=== PATIENT | female | born 2000 | race Two or more races ===

== ENCOUNTER 2024-11-28 10:07 | Observation (INO) | payer MEDICAID, SELFPAY ==
[2024-11-28 10:15] VITALS: BP 131/69; PULSE 93; RESP 18; RESP 97; TEMP 36.7
--- NOTE | 2024-11-28 10:19 | XR_ITS ---
Examination: Complete OB ultrasound greater than 14 weeks Date and time of exam: November 20, 2024 1140 hrs. Indications: Vaginal bleeding beginning 3 days ago Findings: Viable intrauterine single fetus with single amniotic sac presentation cephalic spine maternal left Cardiac motion 136 BPM Placenta anterior grade 3 Umbilical cord insertion seen Amniotic fluid index 10.3 cm Cervix 3.9 cm closed Ovaries obscured by bowel gas. Composite estimated gestational age based on BPD, head circumference, abdominal circumference, femur length is 38 weeks 1 day Estimated weight 3228 g. Survey of intracranial anatomy, spinal anatomy, abdominal anatomy, four-chamber heart performed with no abnormalities identified. Impression: Viable intrauterine gestation cephalic presentation.
[2024-11-28 10:23] VITALS: BMI 28.0
[2024-11-28 11:04] LABS: ROM Kit Lot # 57809118; ROM Swab Mixed By: YOUNB; Rupture of Fetal Membranes Negative (Negative); Swb Mxed in Solvent 1 min? Yes
--- NOTE | 2024-11-28 13:51 | PC.NURSE ---
Patient discharged home with self. Vitals WNL. Amnisure negative. Patient given discharge education including reasons to return and precautions. Patient instructed to follow up with OB provider at next scheduled appt on 12/01. Patient verbalizes understanding, all questions answered and encouraged.
== END 2024-11-28 13:43 | disposition home or self-care (01) ==
PROVIDERS: Admitting Provider Specialist; Visit Provider Specialist
DX: Z34.83 Encounter for supervision of other normal pregnancy, third trimester (principal); Z3A.39 39 weeks gestation of pregnancy
CPT/HCPCS: 59025; 59899; 76805; 84112

== ENCOUNTER 2024-12-01 19:05 | Inpatient (IN) | payer MEDICAID, SELFPAY ==
[2024-12-01] VITALS (41 sets, daily range): BP systolic 0–140; BP diastolic 0–88; PULSE 65–102; RESP 15–100; TEMP 36.6–36.8; O2SAT 94–100; BMI 27.6
--- NOTE | 2024-12-01 19:53 | PD.LDHP ---
Documentation for date of: 12/01/24 OB Labor/Induct. HPI History of Present Illness History of present illness: H and P dictated on STAT line #9 in [place] [id number] Meds Home Medications and Allergies Home Medications ?Medication ?Instructions ?Recorded ?Confirmed ?Type vitamins-iron fumarate 27 1 tab PO QDAY 01/20/20 12/01/24 History mg iron-folic acid 0.8 mg tablet ( Vitamin) Allergies Allergy/AdvReac Type Severity Reaction Status Date / Time No Known Allergies Allergy Verified 12/01/24 19:23 OB Exam Physical Exam Vital signs: Temp Pulse Resp BP 97.9 F 88 15 140/88 H 12/01/24 19:30 12/01/24 19:24 12/01/24 19:24 12/01/24 19:24
[2024-12-01] MEDS: fentaNYL CIT INJ 50 mCg/ML AMP 2ML 100 MCG IV (21:04)
[2024-12-01 21:55] LABS: Basophils % (Auto) 0 % (0-2.5); Eosinophils % (Auto) 0 % (0-10); Hematocrit 37.2 % (36.0-46.0); Hemoglobin 12.6 g/dL (12.0-16.0); Immature Granulocytes % (Auto) 0 % (0-0); Immature Granulocytes Auto 0.02 Thou/mm3 (0.00-0.00); Lymphocytes # (Auto) 1.9 Thou/mm3 (1.0-4.8); Lymphocytes % (Auto) 19 % (10-50); Mean Corpuscular HGB Conc 33.9 g/dl (31.0-37.0); Mean Corpuscular Hemoglobin 28.5 pg (25.0-35.0); Mean Corpuscular Volume 84 fL (80-100); Monocytes # (Auto) 0.7 Thou/mm3 (0.0-0.8); Monocytes % (Auto) 7 % (0-12); Neutrophils # (Auto) 7.2 Thou/mm3 (1.8-7.7); Neutrophils % (Auto) 73 % (37-80); Nucleated Red Blood Cell % 0 /100 WBC (0); Platelet Count 234 Thou/mm3 (140-440); RDW Standard Deviation 41.6 fL (36.4-46.3); Red Blood Count 4.42 Miln/mm3 (4.00-5.20); White Blood Count 9.9 Thou/mm3 (3.6-11.0)
[2024-12-01 22:25] LABS: Anion Gap 12 (7-16); Blood Urea Nitrogen 10 mg/dL (9-23); Carbon Dioxide 18.9 mMol/L (20.0-31.0); Chloride 106 mMol/L (98-107); Creatinine (Component) 0.7 mg/dL (0.6-1.3); Potassium 3.7 mMol/L (3.4-5.1); Sodium 137 mMol/L (136-145)
[2024-12-01 22:26] LABS: Alanine Aminotransferase < 7 U/L (10-49); Albumin, Serum 4.2 gm/dL (3.5-5.0); Albumin/Globulin Ratio 1.6 (1.2-2.2); Alkaline Phosphatase 181 U/L (46-116); Aspartate Amino Transferase 15 U/L (0-34); BUN/Creatinine Ratio 14 Ratio (12-20); Bilirubin,Total 0.4 mg/dL (0.3-1.2); Calcium 9.4 mg/dL (8.3-10.6); Calcium (Corrected) 9.4 mg/dL (8.5-10.1); Estimated Creatinine Clearance 149.1 mL/min (>60); Globulin 2.7 gm/dL (2.3-3.5); Glucose 67 mg/dL (74-106); LDH (Lactate Dehydrogenase) 223 U/L (120-246); Osmolality,Calculated 270 (275-295); Total Protein 6.9 gm/dL (5.7-8.2); Uric Acid 4.1 mg/dL (3.1-7.8); eGFR > 60 See Note
[2024-12-01 22:31] LABS: Syphilis Nonreactive (Nonreactive)
[2024-12-01 22:44] LABS: Fibrinogen 535 mg/dL (175-375); INR 0.9 (0.9-1.3); Partial Thromboplastin Time 26.2 Seconds (22.0-36.0); Prothrombin Time 10.1 Seconds (9.0-12.2)
[2024-12-01 23:29] LABS: Collection Type, Urine Voided
[2024-12-01 23:33] LABS: Bilirubin,Urine Negative (Negative); Blood,Urine Trace (Negative); Clarity,Urine Clear (Clear/Hazy); Color,Urine Lt-Yellow (Lt Yel-Yel); Glucose, Urine Negative (Negative); Ketones,Urine Negative (Negative); Leukocyte Esterase,Urine Negative (Negative); Nitrite,Urine Negative (Negative); Protein,Urine Negative (Neg - Trace); RBC,Urine 1 /hpf (0-3); Specific Gravity,Urine 1.017 (1.001-1.035); Squamous Epithelial Cell,Urine 2 /hpf (0-5); Urobilinogen,Urine Negative mg/dL (0.0-1.0); WBC,Urine 2 /hpf (0-5)
[2024-12-01] MEDS: OXYTOCIN in NS 20 units 20 UNIT/1,000 ML BAG 125 UNIT IV (23:36)
--- NOTE | 2024-12-01 23:46 | PD.LDDS ---
DS: Providers Provider Date of admission: 12/01/24 20:00 Primary care physician: Physician No Primary/Family Admitting Provider: Ulices Davis MD Attending Provider on Admission: Ulices Davis MD Attending Provider on DC: Ulices Davis MD Discharging Provider: Ulices Davis MD DS: Diagnosis Problem List Completed Was Problem List Reviewed/Reconciled?: Yes Summary/Hosp Course Brief History: H and P dictated on STAT line #9 in [place] [id number] Time Spent with Patient Time attestation: Total time spent providing and/or coordinating discharge services: Exam Vital Signs Temp Pulse Resp BP 97.9 F 88 15 140/88 H 12/01/24 19:30 12/01/24 19:24 12/01/24 19:24 12/01/24 19:24 Discharge Plan Plan Patient Disposition: HOME (Self Care) Patient condition on transfer: Stable Prescriptions/Referrals Prescriptions/Med Rec: No Action Vitamin 27 mg iron- 0.8 mg Tablet 1 tab PO QDAY ibuprofen 800 mg tablet 800 mg PO TID PRN (Reason: pain) Qty: 30 0RF Referrals: No Primary/Family,Physician [Primary Care Provider] - Patient/Caregiver Discharge Instructions Discharge Activity: activity as tolerated Other Discharge Activity Instructions:: Follow up office 6 weeks. Education Materials: After a Vaginal , Understanding Blues, Nutrition While Print Language: Frisian Stand Alone Forms: Phyllis Award Info., Patient Portal Info Letter Discharge Order Discharge Orders: Discharge (Routine); Ordered 12/03/24 Ordered By: Ulices Davis Planned Discharge Date 12/03/24
[2024-12-01] MEDS: IBUPROFEN TAB 400 MG TABLET 800 MG PO (23:47)
[2024-12-02] VITALS (17 sets, daily range): BP systolic 0–133; BP diastolic 0–88; PULSE 37–97; RESP 16–18; TEMP 36.7–37.1; O2SAT 96–99
[2024-12-02 05:18] LABS: Basophils % (Auto) 0 % (0-2.5); Eosinophils % (Auto) 0 % (0-10); Hematocrit 35.9 % (36.0-46.0); Hemoglobin 12.1 g/dL (12.0-16.0); Immature Granulocytes % (Auto) 0 % (0-0); Immature Granulocytes Auto 0.05 Thou/mm3 (0.00-0.00); Lymphocytes # (Auto) 1.6 Thou/mm3 (1.0-4.8); Lymphocytes % (Auto) 11 % (10-50); Mean Corpuscular HGB Conc 33.7 g/dl (31.0-37.0); Mean Corpuscular Hemoglobin 28.5 pg (25.0-35.0); Mean Corpuscular Volume 85 fL (80-100); Monocytes # (Auto) 0.9 Thou/mm3 (0.0-0.8); Monocytes % (Auto) 6 % (0-12); Neutrophils # (Auto) 12.3 Thou/mm3 (1.8-7.7); Neutrophils % (Auto) 83 % (37-80); Nucleated Red Blood Cell % 0 /100 WBC (0); Platelet Count 235 Thou/mm3 (140-440); RDW Standard Deviation 40.9 fL (36.4-46.3); Red Blood Count 4.25 Miln/mm3 (4.00-5.20); White Blood Count 14.8 Thou/mm3 (3.6-11.0)
--- NOTE | 2024-12-02 07:38 | ESPR_ITS ---
Subjective Subjective Interval history: Patient denies any problem or complaint. She is voiding and ambulating and tolerating a regular diet. She denies any excessive vaginal bleeding. She denies any chest pain palpitation shortness of breath or lower extremity pain. She denies any depression or anxiety. Exam Vital Signs Temp Pulse Resp BP Pulse Ox O2 Del Method 98.7 F 75 16 121/72 96 Room Air 12/02/24 03:35 12/02/24 03:35 12/02/24 03:35 12/02/24 03:35 12/02/24 03:35 12/02/24 03:35 Routine Respiratory Exam Comments: Clear to auscultation bilaterally Routine Cardiovascular Exam Comments: Regular rate and rhythm Routine Abdominal Exam Comments: Nontender,. Fundus is firm Routine Extremities Exam Comments: Nontender or edema Objective Labs 12/02/24 04:34 12/01/24 20:15 Labs: Laboratory Results - last 24 hr 12/01/24 12/01/24 12/02/24 20:15 21:30 04:34 WBC 9.9 14.8 H D RBC 4.42 4.25 Hgb 12.6 12.1 Hct 37.2 35.9 L MCV 84 85 MCH 28.5 28.5 MCHC 33.9 33.7 RDW Std Deviation 41.6 40.9 Plt Count 234 235 Neut % (Auto) 73 83 H Lymph % (Auto) 19 11 [place] % (Auto) 7 6 Eos % (Auto) 0 0 Baso % (Auto) 0 0 Neut # (Auto) 7.2 12.3 H Lymph # (Auto) 1.9 1.6 [place] # (Auto) 0.7 0.9 H Eos # (Auto) 0.0 0.0 Baso # (Auto) 0.0 0.0 Immature Gran # (Auto) 0.02 H 0.05 H Absolute Nucleated RBC 0.00 0.00 Immature Gran % 0 0 Nucleated RBC % 0 0 PT 10.1 INR 0.9 APTT 26.2 Fibrinogen 535 H Sodium 137 Potassium 3.7 Chloride 106 Carbon Dioxide 18.9 L Anion Gap 12 BUN 10 Creatinine 0.7 Estim Creat Clear Calc 149.1 eGFR > 60 BUN/Creatinine Ratio 14 Glucose 67 L Calculated Osmolality 270 L Uric Acid 4.1 Calcium 9.4 Corrected Calcium 9.4 Total Bilirubin 0.4 AST 15 ALT < 7 L Alkaline Phosphatase 181 H Lactate Dehydrogenase 223 Total Protein 6.9 Albumin 4.2 Globulin 2.7 Albumin/Globulin Ratio 1.6 Ur Collection Type Voided Urine Color Lt-Yellow Urine Clarity Clear Urine pH 7.0 Ur Specific [place] 1.017 Urine Protein Negative Urine Glucose (UA) Negative Urine Ketones Negative Urine Blood Trace Urine Nitrite Negative Urine Bilirubin Negative Urine Urobilinogen (Auto) Negative Ur Leukocyte Esterase Negative Urine RBC 1 Urine WBC 2 Ur Squamous Epith Cells 2 Urine Bacteria None Syphilis Serology Nonreactive Blood Type A Positive Antibody Screen NEGATIVE Blood Bank Wristband ID Yes Assessment & Plan Assessment Comment Assessment comment: day #1 status post spontaneous vaginal delivery Plan Comment Plan Comment: Encourage ambulation support Possible discharge home tomorrow Time Spent With Patient Time: Total time spent is greater than 50% in coordination of care (as documented) at patient's floor/unit and/or counseling patient:
--- NOTE | 2024-12-02 09:04 | ESHP_ITS ---
RE: TARIQ RAMOS : 2000 DATE OF ADMISSION: 12/01/2024 HISTORY OF PRESENT ILLNESS: This is a 24-year-old 2, para 1 with due date of 12/03/2024 with intrauterine of 39 weeks and 5 days who presents to the labor and delivery complaining of contractions. She denies any leaking or bleeding. She reports normal movement. ALLERGIES: NO KNOWN DRUG ALLERGIES. MEDICATIONS: multivitamin 1 tablet p.o. daily. PAST MEDICAL HISTORY: Right thyroid nodule. Nuclear scan negative 2019. 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 OBSTETRIC HISTORY: 2019, 40-week normal vaginal delivery, 7 pound 9 ounce male. No complications. PAST SURGICAL HISTORY: Denies. REVIEW OF SYSTEMS: She denies any chest pain, palpitations, cough, fever, shortness of breath, or lower extremity pain. She denies any headache, change in vision or right upper quadrant pain. PHYSICAL EXAMINATION: VITAL SIGNS: Blood pressure is 140/88 mmHg, heart rate 88 bpm, respirations 18, temperature 98.2 degrees Fahrenheit. HEENT: Oropharynx and sclerae are clear. LUNGS: Clear to auscultation bilaterally. HEART: Regular rate and rhythm. ABDOMEN: Gravid, term size consistent with estimated weight 30 to 28 g. EXTREMITIES: Nontender. SKIN: No gross rashes or lesions. NEUROLOGIC: No focal deficits. ASSESSMENT AND PLAN: Intrauterine at 39 weeks and 5 days. Early labor. Anticipate spontaneous vaginal delivery. Informed consent was obtained. The patient was made aware of the risks, complications, alternatives, and benefits of operative vaginal delivery and delivery. She agrees with these modes of delivery if indicated. DT: 19:36:10 TT: 20:17:00 Ref: [id number] - TID: [id number]
[2024-12-02] MEDS: ACETAMINOPHEN 325 MG TABLET 650 MG PO (09:14)
[2024-12-02 12:09] LABS: Amphetamine/Metham Scrn,Ur OB Negative (Negative); Benzoylecgonine Screen, Ur OB Negative (Negative); Opiate Screen,Urine OB Negative (Negative); THC Screen,Urine OB Negative (Negative)
--- NOTE | 2024-12-02 14:24 | PC.SS ---
SS conducted bedside contact with the patient to address nursing referral indicating that patient was late to care at 15 weeks.? SS introduced self and role.? Patient confirmed late to care due her switching OB physician. Patient initially was seeing a physician at [facility] then switched to start seeing Dr. Davis. There was a delay in scheduling her as a new patient. Patient went in for care at 15 weeks. Patient states she has one other child at home.? Patient has a boy, age 44 years old and now NB.? Dr. Davis provided continued OB services.? Patient has picked out a customer relations consultant at [facility] . Patient delivered, baby girl, yesterday through natural . FOB, [employer], is involved.? FOB resides in the home. Patient states she plans on breast feeding. Patient confirmed no history of CPS, drug/alcohol, DV.? Patient states when she was in the she suffered from depression, anxiety and PTSD.? Patient was on medication at that time.? She no longer takes medication. well services operator provided resources to include:? Parenting Network, Warm Line and community numbers. Patient is aligned with WIC, FS and TANF. Patient has access to appropriate supplies and equipment.? Patient has access to a car seat.? Patient describes possessing support system consisting of spouse and family. FOB to provide transportation home. No further intervention required at this time. [employer] Supervisor will be available to address any further concerns. SS updated bedside nurse.
[2024-12-02] MEDS: IBUPROFEN TAB 400 MG TABLET 800 MG PO (20:07)
[2024-12-03 05:24] VITALS: BP 111/77; PULSE 81; RESP 16; TEMP 36.6; O2SAT 99
--- NOTE | 2024-12-03 07:25 | OBDSUM_ITS ---
Data (Garcia) Data Hx Section: No : 2 Para: 1 Term: 1 : 0 : 0 Delivery Data (Garcia) Labor Data ROM Date: 12/01/24 ROM Time: 23:03 Rupture Type: SROM Amniotic Fluid: Thin Meconium Delivery Data EDC: 12/03/24 EDC calculated by:: LMP/early US confirmation Labor Onset Stage 1 Date: 12/01/24 Labor Onset Stage 1 Time: 21:00 Labor Onset Stage 2 Date: 12/01/24 Labor Onset Stage 2 Time: 23:28 Delivery Date: 12/01/24 Delivery Time: 23:36 Gestational age (weeks): 39 Gestational age (days): 5 Placenta Delivery Date: 12/01/24 Placenta Delivery Time: 23:40 Delivered by: Ulices Davis Delivery nurse: Pearl Buck Other staff at delivery: Nursery Nurse Other staff at delivery: RT Other staff at delivery: Ana Donovan Other staff at delivery: Dawson Vang Delivery Method Delivery: Vaginal Delivery Type: Spontaneous Presentation: Vertex Position: OA Anesthesia Type Primary Anesthesia: None Delivery Room Medications Other Intrapartum Medications: Yes Placenta Placenta Delivery: Spontaneous Episiotomy Episiotomy: None EBL Estimated blood loss (ml): 200 Umbilical Cord Umbilical Vessels: 3 Nuchal Cord: Not Applicable Body Cord: Not Applicable Additional Procedures None Complications Complications: None Data (Garcia) [place] Data Gender: Female Infant Weight Grams: 3430 1 Minute Total: 8 5 Minute Total: 9
--- NOTE | 2024-12-03 07:26 | PD.LDPPPRG ---
Subjective Subjective Interval history: No problems. Exam Vital Signs Temp Pulse Resp BP Pulse Ox O2 Del Method 97.9 F 81 16 111/77 99 Room Air 12/03/24 05:24 12/03/24 05:24 12/03/24 05:24 12/03/24 05:24 12/03/24 05:24 12/03/24 05:24 Routine Respiratory Exam Comments: CTA BL Routine Cardiovascular Exam Comments: RRR Routine Abdominal Exam Comments: Nontender, fundus firm Routine Extremities Exam Comments: Nontender Objective Labs 12/02/24 04:34 12/01/24 20:15 Labs: Laboratory Results - last 24 hr 12/02/24 09:00 Urine Opiates Screen Negative U Amphetamin/Meth Scrn Negative U Cocaine Metab Screen Negative U Marijuana (THC) Screen Negative Assessment & Plan Assessment Comment Assessment comment: PPD #1 s/p Plan Comment Plan Comment: Discharge home. Time Spent With Patient Time:
[2024-12-03 08:00] VITALS: BP 123/78; PULSE 82; RESP 16; TEMP 36.9; O2SAT 97
== END 2024-12-03 10:00 | disposition home or self-care (01) | DRG 560 ==
LOC: S4SX 23:45 → S4NX 12-02 06:08
PROVIDERS: Admitting Provider Specialist; Visit Provider Specialist
DX: O77.0 Labor and delivery complicated by meconium in amniotic fluid (principal); Z37.0 Single live birth; Z3A.39 39 weeks gestation of pregnancy; Z14.1 Cystic fibrosis carrier
CPT/HCPCS: 36415; 59025; 59409; 80053; 80307; 81001; 83615; 84550; 85025; 85384; 85610; 85730; 86780; 86850; 86900; 86901; 94762; J2590; J3010; A9270